=== PATIENT | female | born 1975 | race Caucasian/White ===

== ENCOUNTER 2018-02-04 05:24 | Day surgery (SDC) | payer BC ==
[~2018-02-04] VITALS: Ht 167.6 cm; Wt 101.2 kg
[~2018-02-04 05:24] MED LIST: ADVIL200 MG PO; MOTRIN IB200 MG PO; NOHOMEMEDS; TYLENOL EXTRA500 MG PO
[2018-02-04 06:06] VITALS: BP 131/63
[2018-02-04 09:24] VITALS: BP 135/70
== END 2018-02-04 10:30 | disposition home or self-care (01) ==
LOC: SDC 05:24
DX: A63.0 Anogenital (venereal) warts (principal); D07.2 Carcinoma in situ of vagina; Z98.51 Tubal ligation status; Z86.19 Personal history of other infectious and parasitic diseases; Z90.49 Acquired absence of other specified parts of digestive tract; K57.90 Diverticulosis of intestine, part unspecified, without perforation or abscess without bleeding; Z88.0 Allergy status to penicillin; Z88.1 Allergy status to other antibiotic agents; Z72.0 Tobacco use; Z83.3 Family history of diabetes mellitus; Z82.49 Family history of ischemic heart disease and other diseases of the circulatory system; Z83.49 Family history of other endocrine, nutritional and metabolic diseases; Z68.36 Body mass index [BMI] 36.0-36.9, adult
CPT/HCPCS: 88305; 88342 TC; J0131; J0690; J1100; J1170; J1885; J2250; J2405; J3010